=== PATIENT | male | born 1980 | race Caucasian/White ===

== ENCOUNTER 2017-03-16 15:20 | Emergency (ER) | payer SELFPAY ==
[2017-03-16 15:35] VITALS: BP 134/78
--- NOTE | 2017-03-16 16:45 | ED Physician Documentation ---
History of Present Illness - Stated complaint Stated Complaint: LEFT FOOT PX - Chief complaint Chief Complaint: Ext Problem - History obtained from History obtained from: Patient - History of Present Illness Timing: Today Pain level max: 7 Pain level now: 5 Quality: sharp Improved by: rest Worsened by: walking Associated symptoms: no numbness, tingling - Additonal information Additional information: L foot pain since this am. States sharp pain to the mid foot. No known injury. 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 Hasn't taken anything for the pain. Review of Systems Constitutional: denies: Fever Skin: denies: Rash Musculoskeletal: denies: Neck pain, Back pain Neurologic: denies: Focal weakness, Numbness PD PAST MEDICAL HISTORY - Past Medical History Past Medical History: No - Present Medications Home Medications: Ambulatory Orders Medication Instructions Recorded Confirmed Ibuprofen [Motrin] 800 mg PO Q8H PRN #30 tablet 03/16/17 - Allergies Allergies/Adverse Reactions: Allergies Allergy/AdvReac Type Severity Reaction Status Date / Time No Known Drug Allergies Allergy Verified 03/16/17 15:34 - Living Situation Living Arrangement: reports: At home - Social History Does the pt smoke?: Yes PD ED PE NORMAL - Vitals Vital signs reviewed: Yes - General General: Alert and oriented X 3, No acute distress - Derm Derm: Warm and dry - Extremities Extremities: Other (L foot - TTP over the base of the 4th and 5th MT. NVI. o/w normal exam.) - Neuro Neuro: Alert and oriented X 3 Results - Vitals Vitals: Vital Signs - 24 hr 03/16/17 15:27 Temperature 37.2 C Heart Rate 103 H Respiratory 18 Rate Blood Pressure 134/78 H O2 Saturation 97 Oxygen O2 Source Room air - Rads (name of study) L foot xray Radiology: Prelim report reviewed, EMP read contemporaneously, See rad report ( Normal foot radiography. ) PD MEDICAL DECISION MAKING - ED course Complexity details: reviewed results, re-evaluated patient, considered differential, d/w patient ED course: Patient with left foot pain of unclear etiology. No acute findings on x-ray. Placed in a postoperative shoe and on crutches for comfort. We will have him continue nonsteroidal anti-inflammatory pain medication at home. We will have him follow-up with his doctor for further evaluation and care. Possible sprain vs overuse injury? No gout, no infection, no fracture. Patient counseled regarding signs and symptoms for which I believe and urgent re-evaluation would be necessary. Patient with good understanding of and agreement to plan and is comfortable going home at this time This document was made in part using voice recognition software. While efforts are made to proofread this document, sound alike and grammatical errors may occur. Departure - Departure Disposition: 01 Home, Self Care Clinical Impression: Sprain of foot, left Qualifiers: Encounter type: initial encounter Qualified Code(s): S93.602A - Unspecified sprain of left foot, initial encounter Condition: Good Instructions: ED Sprain Foot Follow-Up: your,doctor in 1 week [Other] Prescriptions: Ibuprofen [Motrin] 800 mg PO Q8H PRN #30 tablet PRN Reason: PAIN &/OR FEVER Comments: Return if you worsen. You may bear weight as tolerated. Forms: Activity restrictions Discharge Date/Time: 03/16/17 18:18
[2017-03-16] MEDS ORDERED: IBUPROFEN 800 MG TABLET PO STA (17:02)
[2017-03-16] MEDS ORDERED: IBUPROFEN 800 MG TABLET PO ONE (17:24)
--- NOTE | 2017-03-16 17:31 | XRAY Preliminary Report ---
Exam: XR Foot 3 View LT IMPRESSION: Normal foot radiography. [facility] SITE ID: [id number]
--- NOTE | 2017-03-16 17:34 | XRAY Report ---
EXAM: LEFT FOOT RADIOGRAPHY EXAM DATE: 03/16/2017 05:18 PM. CLINICAL HISTORY: L foot pain, base of 4th, 5th MT. COMPARISON: None. TECHNIQUE: 3 views. FINDINGS: Bones: Normal. No fractures or bone lesions. Joints: Normal. No subluxations. Soft Tissues: Normal. No soft tissue swelling. IMPRESSION: Normal foot radiography. [facility] Referring Provider Line: [phone] SITE ID: [id number]
== END 2017-03-16 18:18 | disposition home or self-care (01) ==
LOC: ED 15:20
DX: S93.602A Unspecified sprain of left foot, initial encounter (principal); X58.XXXA Exposure to other specified factors, initial encounter
CPT/HCPCS: 73630; 99283; A9270

== ENCOUNTER 2023-06-25 09:51 | Outpatient (CLI) | payer OTHER ==
--- NOTE | 2023-06-25 22:36 | CT Report ---
PROCEDURE: PELVIS WO INDICATIONS: RIGHT HIP PAIN TECHNIQUE: Noncontrast 3 mm axial sections acquired through the bony pelvis, with coronal and sagittal reformatt ing. For radiation dose reduction, the following was used: automated exposure control, adjustment of mA and/or kV according to patient size. COMPARISON: None. FINDINGS: Image quality: Excellent. Bones: Negative for fracture. No dislocation. There are mild degenerative changes seen. No suspiciou s lytic or blastic lesions are seen. No findings of avascular necrosis can be seen. Soft tissues: No hip effusions are seen. No hernias are seen. Bilateral nonenlarged lymph nodes can be seen involving both inguinal regions. No bladder wall thickening is seen. The visualized small bowel is within normal limits. No significan t colonic abnormality is seen. Appendectomy. IMPRESSION: A cause of right hip pain is not identified. No hernias or masses are detected. If it would be helpful for clinical management decision making, please consider a dedicated hip MRI f or further evaluation (assuming that there is no contraindication). This should be performed accordi ng to the arthrogram protocol, if there is strong clinical concern for a labral abnormality. Additional findings: Prior appendectomy Reviewed by: Twin Belcher MD on 06/25/2023 9:34 PM [facility] Approved by: Twin Belcher MD on 06/25/2023 9:34 PM [facility] Station ID: [id number]
== END 2023-06-25 09:52 | disposition home or self-care (01) ==
LOC: DI 09:51
PROVIDERS: ATTEND Nurse Practitioner
DX: M25.551 Pain in right hip (principal)

== ENCOUNTER 2023-06-30 13:19 | Outpatient (CLI) | payer OTHER ==
[2023-06-30 17:57] LABS: CALCIUM 8.7 mg/dL (8.5-10.3); CREATININE 0.9 mg/dL (0.6-1.3); POTASSIUM 3.6 mmol/L (3.5-4.5)
[2023-06-30 19:39] LABS: ESTIMATED AVERAGE GLUCOSE 88 mg/dL (70-100); HEMOGLOBIN A1c% 4.7 % (4.27-6.07)
== END 2023-06-30 13:20 | disposition home or self-care (01) ==
LOC: LAB.N 13:19
PROVIDERS: ATTEND Physician Assistant
DX: I10 Essential (primary) hypertension (principal); R73.01 Impaired fasting glucose
CPT/HCPCS: 36415; 80048; 83036

== ENCOUNTER 2023-07-14 09:05 | Outpatient (CLI) | payer OTHER ==
--- NOTE | 2023-07-14 16:09 | XRAY Report ---
PROCEDURE: Hip 2 View RT INDICATIONS: RIGHT HIP PAIN TECHNIQUE: 2 views of the hip were acquired. COMPARISON: None. FINDINGS: Bones: No fractures or dislocations. No suspicious bony lesions. No significant right hip degener ation. Soft tissues: No suspicious soft tissue calcifications or masses. IMPRESSION: No acute bony abnormality. Reviewed by: Lizzette Rogers MD on 07/14/2023 4:08 PM PST Approved by: Lizzette Rogers MD on 07/14/2023 4:08 PM PST Station ID: [id number]
== END 2023-07-14 23:59 | disposition home or self-care (01) ==
LOC: DI.WOS 09:05
PROVIDERS: ATTEND Physician Assistant Surgical
DX: S73.101D Unspecified sprain of right hip, subsequent encounter (principal)